=== PATIENT | female | born 1985 | race Hispanic/Latino ===

== ENCOUNTER 2019-04-26 04:00 | Emergency (ER) | payer SELFPAY ==
[2019-04-26] MEDS ORDERED: CYCLOBENZAPRINE 10 MG TAB ONE (04:44)
[2019-04-26] MEDS ORDERED: KETOROLAC 30 MG/ML INJ ONE (04:44)
[2019-04-26 04:55] LABS: Absolute Lymphocytes (CBC) 3.2 K/uL (0.7-4.9); Basophils % 0.2 % (0-1.3); Hematocrit 35.5 % (36.0-45.0); Lymphocytes % 33.4 % (15.3-44.8); MPV 8.7 fL (7.6-11.3); RBC Red Blood Cell Count 3.85 M/uL (3.86-4.86)
[2019-04-26 04:59] LABS: Protime INR 0.92
[2019-04-26 05:16] LABS: ALT/SGPT 30 U/L (12-78); AST/SGOT 15 U/L (15-37); Albumin 3.6 g/dL (3.4-5.0); Alkaline Phosphatase 94 U/L (45-117); BUN Blood Urea Nitrogen 12 mg/dL (7-18); Bicarbonate 26 mmol/L (21-32); Bilirubin Direct < 0.1 mg/dL (0-0.2); Bilirubin Total 0.3 mg/dL (0.2-1.0); Glucose Level 97 mg/dL (74-106); Magnesium 1.9 mg/dL (1.8-2.4); NT PRO-BNP 45 pg/mL (<125); Potassium 3.4 mmol/L (3.5-5.1); Sodium Level 138 mmol/L (136-145); Troponin (Emerg Dept Use Only) < 0.02 ng/mL (0.0-0.045)
--- NOTE | 2019-04-26 05:29 | EDPHYS ---
Physician Documentation [facility] Name: Isa Shahid Age: 33 yrs Sex: Female : 1985 Arrival Date: 04/26/2019 Time: 04:02 Bed 13 Private MD: ED Physician Elie Castrejon HPI: 04/26 04:18 This 33 yrs old Female presents to ER via Unassigned with complaints of Neck tw4 Pain, Chest Pain. 04:18 The patient or guardian reports chest pain that is located primarily in the anterior tw4 chest wall, left. The pain radiates to left neck. Associated signs and symptoms: The patient has no apparent associated signs or symptoms. The chest pain is described as a heaviness. Duration: The patient or guardian reports multiple episodes, that are intermittent, that wax and wane. Modifying factors: The symptoms are alleviated by pain medications. the symptoms are aggravated by breathing, movement, palpation of area. Severity of pain: At its worst the pain was moderate in the emergency department the pain has improved. The patient has not experienced similar symptoms in the past. 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 - Social history:: Smoking status: Patient/guardian denies using tobacco. - Ebola Screening: : No symptoms or risks identified at this time. ROS: 04:18 Constitutional: Negative for fever, chills, and weight loss, Eyes: Negative for injury, tw4 pain, redness, and discharge, Respiratory: Negative for shortness of breath, cough, wheezing, and pleuritic chest pain, Abdomen/GI: Negative for abdominal pain, nausea, vomiting, diarrhea, and constipation, Back: Negative for injury and pain, MS/Extremity: Negative for injury and deformity, Skin: Negative for injury, rash, and discoloration, Neuro: Negative for headache, weakness, numbness, tingling, and seizure. 04:18 Neck: Positive for pain with movement, stiffness. 04:18 Cardiovascular: Positive for chest pain, Negative for edema, orthopnea, palpitations, paroxysmal nocturnal dyspnea. Exam: 04:18 Constitutional: This is a well developed, well nourished patient who is awake, alert, tw4 and in no acute distress. Head/Face: Normocephalic, atraumatic. 04:18 Respiratory: Lungs have equal breath sounds bilaterally, clear to auscultation and percussion. No rales, rhonchi or wheezes noted. No increased work of breathing, no retractions or nasal flaring. Abdomen/GI: Soft, non-tender, with normal bowel sounds. No distension or tympany. No guarding or rebound. No evidence of tenderness throughout. Back: No spinal tenderness. No costovertebral tenderness. Full range of motion. MS/ Extremity: Pulses equal, no cyanosis. Neurovascular intact. Full, normal range of motion. Neuro: Awake and alert, GCS 15, oriented to person, place, time, and situation. Cranial nerves II-XII grossly intact. Motor strength 5/5 in all extremities. Sensory grossly intact. Cerebellar exam normal. Normal gait. 04:18 Neck: External neck: tenderness, of the occiput, C-spine: no acute changes, Thyroid: no acute changes, ROM/movement: limited range of motion, that is moderate, when rotating to the left. 04:18 Chest/axilla: Inspection: normal, Palpation: tenderness, that is mild, that partially reproduces the patient's complaints. Vital Signs: 04:22 BP 128 / 93; Pulse 75; Resp 18; Temp 98.1; Pulse Ox 99% on R/A; Weight 72.57 kg (R); lp1 Pain 10/10; 05:14 BP 117 / 78; Pulse 67; Resp 16; Pulse Ox 98% on R/A; lp1 MDM: 04:13 Patient medically screened. tw4 12/03 05:50 Differential diagnosis: acute pericarditis, chest wall pain, cholecystitis, tw4 Cholelithiasis costochondritis, esophagitis. Data reviewed: vital signs, nurses notes. Data interpreted: Pulse oximetry: Interpretation:. Counseling: I had a detailed discussion with the patient and/or guardian regarding: the historical points, exam findings, and any diagnostic results supporting the discharge/admit diagnosis. Special discussion: I discussed with the patient/guardian in detail that at this point there is no indication for admission to the hospital. It is understood, however, that if the symptoms persist or worsen the patient needs to return immediately for re-evaluation. 04/26 04:18 Order name: Basic Metabolic Panel tw4 04/26 04:18 Order name: CBC with Diff tw4 04/26 04:18 Order name: LFT's tw4 04/26 04:18 Order name: Magnesium tw4 04/26 04:18 Order name: NT PRO-BNP tw4 04/26 04:18 Order name: PT-INR tw4 04/26 04:18 Order name: Troponin (emerg Dept Use Only) tw4 04/26 04:18 Order name: XRAY Chest (1 view) tw4 04/26 04:18 Order name: EKG; Complete Time: 04:19 tw4 04/26 04:18 Order name: Cardiac monitoring; Complete Time: 04:41 tw4 04/26 04:18 Order name: EKG - Nurse/Tech; Complete Time: 04:41 tw4 04/26 04:18 Order name: IV Saline Lock; Complete Time: 05:05 tw4 04/26 04:18 Order name: Labs collected and sent; Complete Time: 04:41 tw4 04/26 04:18 Order name: O2 Per Protocol; Complete Time: 04:41 tw4 04/26 04:18 Order name: O2 Sat Monitoring; Complete Time: 04:41 tw4 Administered Medications: 04/26 04:43 Drug: TORadol 30 mg Route: IVP; Site: right antecubital; lp1 06:01 Follow up: Response: Marked relief of symptoms lp1 04:43 Drug: Flexeril 10 mg Route: PO; lp1 06:01 Follow up: Response: Marked relief of symptoms lp1 Disposition: 04/26/19 05:28 Discharged to Home. Impression: chest wall pain. - Condition is Stable. - Discharge Instructions: Costochondritis, Cervical Sprain. - Prescriptions for Tramadol 50 mg Oral Tablet - take 1 tablet by ORAL route every 8 hours as needed; 12 tablet. Cyclobenzaprine 5 mg Oral Tablet - take 1 tablet by ORAL route 3 times per day As needed; 15 tablet. - Medication Reconciliation Form, Thank You Letter, Antibiotic Education, Prescription Opioid Use form. - Follow up: Private Physician; When: Upon discharge from the Emergency Department; Reason: Recheck today's complaints, Continuance of care. - Problem is new. - Symptoms have improved. Signatures: Dispatcher [employer] Linda Hood RN RN lp1 Elie Castrejon MD MD tw4 Corrections: (The following items were deleted from the chart) 06:01 05:28 04/26/2019 05:28 Discharged to Home. Impression: chest wall pain. Condition is lp1 Stable. Forms are Medication Reconciliation Form, Thank You Letter, Antibiotic Education, Prescription Opioid Use. Follow up: Private Physician; When: Upon discharge from the Emergency Department; Reason: Recheck today's complaints, Continuance of care. Problem is new. Symptoms have improved. tw4
--- NOTE | 2019-04-26 05:29 | ER ---
Nurse's Notes [facility] Name: Isa Shahid Age: 33 yrs Sex: Female : 1985 Arrival Date: 04/26/2019 Time: 04:02 Bed 13 Private MD: Diagnosis: chest wall pain Presentation: 04/26 04:19 Presenting complaint: Patient states: Chest pain radiating up to neck, has been for a lp1 few days but no relief with Diclofenac prescribed by PCP; Denies any fever, shortness of breath, dizziness. Transition of care: patient was not received from another setting of care. Onset of symptoms was April 26, 2019. Risk Assessment: Do you want to hurt yourself or someone else? Patient reports no desire to harm self or others. Initial Sepsis Screen: Does the patient meet any 2 criteria? No. Patient's initial sepsis screen is negative. Does the patient have a suspected source of infection? No. Patient's initial sepsis screen is negative. Care prior to arrival: None. 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 - Social history:: Smoking status: Patient/guardian denies using tobacco. - Ebola Screening: : No symptoms or risks identified at this time. Screenin:23 Abuse screen: Denies threats or abuse. Denies injuries from another. Nutritional lp1 screening: No deficits noted. Tuberculosis screening: No symptoms or risk factors identified. Fall Risk None identified. Assessment: 04:50 General: Appears uncomfortable, Behavior is appropriate for age. Pain: Complains of lp1 pain in chest Pain radiates to back of neck and posterior chest Pain currently is 10 out of 10 on a pain scale. Quality of pain is described as shooting, Pain began 2-3 days ago. Neuro: Level of Consciousness is awake, alert, obeys commands, Oriented to person, place, time, situation, Gait is steady. Cardiovascular: Patient's skin is warm and dry. Respiratory: Respiratory effort is even, unlabored, Breath sounds are clear bilaterally. GI: No signs and/or symptoms were reported involving the gastrointestinal system. : No signs and/or symptoms were reported regarding the genitourinary system. EENT: No signs and/or symptoms were reported regarding the EENT system. Derm: Skin is pink, warm \T\ dry. Musculoskeletal: No deficits noted. 06:00 Reassessment: Patient states feeling better. Patient states symptoms have improved. lp1 Vital Signs: 04:22 BP 128 / 93; Pulse 75; Resp 18; Temp 98.1; Pulse Ox 99% on R/A; Weight 72.57 kg (R); lp1 Pain 10/10; 05:14 BP 117 / 78; Pulse 67; Resp 16; Pulse Ox 98% on R/A; lp1 ED Course: 04:02 Patient arrived in ED. ds1 04:12 Linda Ren, RN is Primary Nurse. lp1 04:13 Elie Csatrejon MD is Attending Physician. tw4 04:21 Triage completed. lp1 04:22 Arm band placed on. lp1 04:24 Patient has correct armband on for positive identification. Placed in gown. lp1 04:30 Inserted saline lock: 22 gauge in right antecubital area, using aseptic technique. lp1 Blood collected. 04:40 panel monitor on. Pulse ox on. NIBP on. lp1 04:40 Patient maintains SpO2 saturation greater than 95% on room air. lp1 05:53 No provider procedures requiring assistance completed. lp1 06:00 IV discontinued, No redness/swelling at site. Pressure dressing applied. lp1 06:14 XRAY Chest (1 view) In Process Unspecified. EDMS Administered Medications: 04:43 Drug: TORadol 30 mg Route: IVP; Site: right antecubital; lp1 06:01 Follow up: Response: Marked relief of symptoms lp1 04:43 Drug: Flexeril 10 mg Route: PO; lp1 06:01 Follow up: Response: Marked relief of symptoms lp1 Outcome: 05:28 Discharge ordered by . tw4 06:00 Discharged to home ambulatory, with significant other. lp1 06:00 Condition: good 06:00 Discharge instructions given to patient, significant other, Instructed on discharge instructions, follow up and referral plans. medication usage, Demonstrated understanding of instructions, follow-up care, medications, Prescriptions given X 2. 06:01 Patient left the ED. lp1 Signatures: Dispatcher [employer] FEROZ Sterling, Maribel ds1 Linda Ren, HERMELINDO RN lp1 Elie Castrejon MD MD tw4 Corrections: (The following items were deleted from the chart) 04:48 04:22 BP 128 / 93; Pulse 75bpm; Resp 18bpm; Pulse Ox 99% RA; 72.57 kg Reported; Pain lp1 03/04; lp1
[2019-04-26 06:09] VITALS: TEMP 98.1
[2019-04-26 06:10] VITALS: BP 117/78; O2SAT 98
--- NOTE | 2019-04-26 08:34 | RAD REPORT ---
EXAM DESCRIPTION: RAD - Chest Single View - 04/26/2019 6:14 am CLINICAL HISTORY: Chest pain COMPARISON: None. TECHNIQUE: AP portable chest image was obtained [id number] hours . FINDINGS: Lungs are clear. Heart and vasculature are normal. No measurable pleural effusion and no p neumothorax. No acute bony abnormality seen. No acute aortic findings suspected. IMPRESSION: No acute cardiopulmonary process.
--- NOTE | 2019-04-26 10:04 | EKG ---
Test Date: 2019-04-26 Test Time: 04:30:14 [employer] Tapping: AIMEE MEASUREMENT RESULTS: Intervals: Rate: 67 HI: 166 QRSD: 88 QT: 414 QTc: 437 [place]: P: 59 HI: 166 QRS: 55 T: 43 INTERPRETIVE STATEMENTS: Normal sinus rhythm Normal ECG No previous ECG available for comparison Electronically Signed On 04-26-19 10:03:05 HEATER MECHANIC by Jermaine Jeff
== END 2019-04-26 06:01 | disposition home or self-care (01) ==
LOC: ER 04:00
DX: R07.89 Other chest pain (principal)
CPT/HCPCS: 36415; 71045; 80048; 80076; 83735; 83880; 84484; 85025; 85610; 93005; 96374; 99285